=== PATIENT | male | born 1955 | race Caucasian/White ===

== ENCOUNTER 2019-08-26 14:25 | Emergency (ER) | payer MEDICAID, OTHER ==
[~2019-08-26] VITALS: Ht 182.9 cm; Wt 86.2 kg
[2019-08-26 15:02] LABS: BASOPHILS # (AUTO) 0.1 K/uL (0.0-8.0); BASOPHILS % (AUTO) 0.5 % (0.0-2.0); HEMATOCRIT 42.3 % (36.7-47.1); HEMOGLOBIN 14.2 g/dL (12.5-16.3); LYMPHOCYTES # (AUTO) 0.6 K/uL (20.0-40.0); LYMPHOCYTES % (AUTO) 4.5 % (20.5-51.5); MEAN CORPUSCULAR HEMOGLOBIN 30.8 uug (23.8-33.4); MEAN CORPUSCULAR HGB CONC 34 g/dL (32.5-36.3); MEAN CORPUSCULAR VOLUME 91.9 fL (73.0-96.2); MONOCYTES # (AUTO) 0.6 K/uL (2.0-10.0); MONOCYTES % (AUTO) 4.5 % (0.0-11.0); NEUTROPHILS # (AUTO) 11.8 K/uL (1.8-8.9); NEUTROPHILS % (AUTO) 90.5 % (38.5-71.5); PLATELET COUNT (AUTO) 213 K/uL (152-348); RED BLOOD CELL COUNT(AUTO) 4.61 MIL/uL (4.06-5.63)
[2019-08-26 15:10] LABS: CREATININE 1.3 mg/dL (0.6-1.3); POTASSIUM 3.9 mmol/L (3.5-5.1)
[2019-08-26 15:16] LABS: BILIRUBIN,DIRECT 0.2 mg/dL (0.0-0.2); BILIRUBIN,TOTAL 0.9 mg/dL (0.2-1.0); TOTAL PROTEIN, SERUM 7.4 g/dL (6.4-8.2)
--- NOTE | 2019-08-26 16:28 | NUR ---
made aware of Pt's elevated temp.
[2019-08-26] MEDS ORDERED: AZITHROMYCIN IV 500 MG in IV DEXTROSE 5% 250 ML IV ONE (16:30)
[2019-08-26] MEDS ORDERED: OSELTAMIVIR PHOSPHATE 75 MG CAPSULE PO ONE (16:30)
[2019-08-26] MEDS ORDERED: CEFTRIAXONE 1 G in IV DEXTROSE 5% 50 ML IV ONE (16:30)
[2019-08-26] MEDS ORDERED: OSELTAMIVIR PHOSPHATE 75 MG CAPSULE ONE (16:40)
[2019-08-26] MEDS ORDERED: AZITHROMYCIN 500 MG VIAL IV ONE (16:40)
[2019-08-26] MEDS ORDERED: CEFTRIAXONE 1 G VIAL ONE (16:40)
[2019-08-26] MEDS ORDERED: ACETAMINOPHEN 325 MG TABLET ONE (16:51)
[2019-08-26] MEDS ORDERED: ACETAMINOPHEN 650 MG/20.3 ML LIQUID UDC PO ONE (17:00)
[2019-08-26 17:51] LABS: *BILIRUBIN,URIN 1+ (NEGATIVE); *BLOOD, URINE NEGATIVE (NEGATIVE); *KETONES,URINE 1+ (NEGATIVE); *UROBILINOGEN,URINE 0.2 E.U./dl (NORMAL); LEUKOCYTE ESTERASE ,URINE NEGATIVE (NEGATIVE); NITRITE, URINE NEGATIVE (NEGATIVE); UGLUCOSE NEGATIVE (NEGATIVE)
[2019-08-26] MEDS ORDERED: IV NS 1000 ML 1,000 ML IV PRN (17:57)
[2019-08-26] MEDS ORDERED: HYDROCODONE/APAP 5-325MG TABLET PO PRN (18:00)
[2019-08-26] MEDS ORDERED: ACETAMINOPHEN 325 MG TABLET PO PRN (18:00)
[2019-08-26] MEDS ORDERED: ONDANSETRON 4 MG/2 ML VIAL IV PRN (18:00)
[2019-08-26] MEDS ORDERED: MAGNESIUM HYDROXIDE 30 ML LIQUID UDC PO PRN (18:00)
[2019-08-26] MEDS ORDERED: Z GUARD REMEDY PASTE 57 GM TUBE TOP PRN (18:00)
[2019-08-26 18:01] LABS: *CLARITY,URINE TURBID (CLEAR); *COLOR,URINE DARK YELLOW (YELLOW)
[2019-08-26 18:06] LABS: MUCUS,URINE MODERATE /LPF (0-FEW); URINE AMORPHOUS URATE MANY /HPF; WBC,URINE NONE SEEN /HPF (0-3)
--- NOTE | 2019-08-26 19:08 | NUR ---
Dr. Kendrick Victor at bedside.
--- NOTE | 2019-08-26 19:40 | NUR ---
[facility] called back, spoke with john paul Manriquez to be transferred to [facility], will call back.
[2019-08-26] MEDS ORDERED: DEXTROSE 50% 50 ML DISP.SYRIN IV PRN (20:00)
[2019-08-26] MEDS ORDERED: METFORMIN HCL 500 MG TABLET PO SCH (20:00)
[2019-08-26] MEDS ORDERED: INSULIN REGULAR, HUMAN 300 UNIT/3 ML VIAL SQ PRN (20:00)
--- NOTE | 2019-08-26 20:57 | NUR ---
Called [facility], still working on a bed at [facility], Accepting MD is Dr. Chinchilla.
[2019-08-26] MEDS ORDERED: BLOOD SUGAR DIAGNOSTIC 1 EACH STRIP VI SCH (21:00)
--- NOTE | 2019-08-26 21:40 | NUR ---
Called [facility], Transfer Information given, patient going to [facility], Room 135B, Number to report , transportation to be arranged by insurance will call back with FREDDIE.
--- NOTE | 2019-08-26 22:24 | NUR ---
Got call back from [facility], eta given [phone].
--- NOTE | 2019-08-27 00:05 | NUR ---
Report given to Lauren STILL [facility].
--- NOTE | 2019-08-27 00:27 | NUR ---
Patient out of ER via [facility] to be transported to [facility], report and documentation given to EMT.
[2019-08-27] MEDS ORDERED: PANTOPRAZOLE SODIUM 40 MG TABLET.DR PO SCH (07:00)
[2019-08-27] MEDS ORDERED: OSELTAMIVIR PHOSPHATE 75 MG CAPSULE PO SCH (09:00)
[2019-08-27] MEDS ORDERED: AZITHROMYCIN IV 500 MG in IV DEXTROSE 5% 250 ML IV SCH (17:00)
[2019-08-27] MEDS ORDERED: CEFTRIAXONE 1 G in IV DEXTROSE 5% 50 ML IV SCH (18:00)
== END 2019-08-27 00:30 | disposition short-term general hospital (02) ==
LOC: ER 14:25
DX: B34.9 Viral infection, unspecified (principal); R55 Syncope and collapse; E11.9 Type 2 diabetes mellitus without complications; Z79.84 Long term (current) use of oral hypoglycemic drugs
CPT/HCPCS: 36415; 71045; 80048; 80076; 81000; 81001; 83605; 84484; 85025; 87040 ×2; 87086; 87400; 93005; 96365; 96368; 99285; J0456; J0696; 70030-TC